=== PATIENT | female | born 1985 | race Caucasian/White ===

== ENCOUNTER 2016-12-24 21:46 | Emergency (ER) | payer OTHER ==
[~2016-12-24] VITALS: Ht 180.3 cm; Wt 88.5 kg
[~2016-12-24 21:46] MED LIST: BENADRYL25 MG PO; BRINTELLIX10 MG PO; CLEOCIN300 MG PO; GABAPENTIN100 MG PO; METHADONE 22 MG/1 ML PO; MOTRIN600 MG PO; OMEPRAZOLE20 MG PO; PERCOCET 5/31 TABLET PO; PREDNISONE50 MG PO; PROMETHAZINE HC25 M1 PO; TORADOL10 MG PO
[2016-12-24] MEDS ORDERED: MOTRIN600 MG PO (22:34)
[2016-12-24] MEDS ORDERED: ULTRACET1 TABLET PO (22:34)
[2016-12-24 22:47] VITALS: BP 147/94
== END 2016-12-24 22:48 | disposition home or self-care (01) ==
LOC: EME 21:46
PROC: 0HQ1XZZ Repair Face Skin, External Approach (ICD-10-PCS; principal; 2016-12-24)
DX: S01.81XA Laceration without foreign body of other part of head, initial encounter (principal); S40.012A Contusion of left shoulder, initial encounter; W01.198A Fall on same level from slipping, tripping and stumbling with subsequent striking against other object, initial encounter
CPT/HCPCS: 99281; 99284

== ENCOUNTER 2017-02-25 03:46 | Emergency (ER) | payer OTHER ==
[~2017-02-25] VITALS: Ht 177.8 cm; Wt 91.4 kg
[~2017-02-25 03:46] MED LIST changes: +ULTRACET1 TABLET PO
[2017-02-25 04:25] LABS: HEMATOCRIT 32.3 % (36.0-46.0); MCH 24.7 PG (29.0-34.0); MCHC 30.3 G/DL (30.0-36.0); MCV 81.6 FL (83-99); MEAN PLAT.VOLUME 11.6 uM^3 (9.5-12.4); PLATELET COUNT 310 K/uL (156-360); RBC DIS.WIDTH-CV 16.1 % (11.8-14.6); RBC DIS.WIDTH-SD 48.4 % (39-53); RED BLOOD COUNT 3.96 M/uL (3.80-5.20); WHITE BLOOD COUNT 6.4 K/uL (4.1-10.2)
[2017-02-25 04:42] LABS: CHLORIDE 109 mEq/L (99-109); POTASSIUM 3.6 mEq/L (3.7-5.4); SODIUM 143 mEq/L (136-147)
[2017-02-25 04:44] LABS: GLUCOSE 91 mg/dL (70-99)
[2017-02-25 04:45] LABS: ANION GAP 10 MEQ/L (2-14)
[2017-02-25 04:46] LABS: TOTAL BILIRUBIN 0.2 mg/dL (0.0-1.0)
[2017-02-25 04:47] LABS: ALKALINE PHOSPHATASE 172 IU/L (3-129); SERUM ETHYL ALCOHOL 304 mg/dL
[2017-02-25 04:48] LABS: GFR ESTIMATE (CALCULATED) > 59 mL/min/
[2017-02-25 04:49] LABS: UREA NITROGEN (BUN) 8 mg/dL (9-23)
[2017-02-25 04:51] LABS: LIPASE 164 U/L (1.0-51.0)
[2017-02-25 04:57] LABS: QUANTITATIVE HCG < 4.0 MIU/ML
[2017-02-25 06:25] LABS: ADD MIUA? YES; BILIRUBIN NEGATIVE; BLOOD SMALL; COLOR YELLOW ((YELLOW)); GLUCOSE (STRIP) NEGATIVE; KETONES NEGATIVE; LEUKOCYTES NEGATIVE; NITRITE NEGATIVE; PROTEIN (STRIP) NEGATIVE; SPECIFIC GRAVITY 1.026 (1.000-1.030)
[2017-02-25 06:28] LABS: BACTERIA NONE SEEN /HPF; EPITHELIAL CELLS RARE /HPF; MUCUS TRACE /LPF; RED BLOOD CELLS 0-5 /HPF (0-5); UCUL ADDED? NO; WHITE BLOOD CELLS 0-5 /HPF (0-5)
[2017-02-25 06:34] LABS: AMPHETAMINE NEGATIVE (500 ng/mL); BENZODIAZEPINES NEGATIVE (150 ng/mL); COCAINE NEGATIVE (150 ng/mL); METHAMPHETAMINE NEGATIVE (500 ng/mL); OPIATES (MORPHINE) NEGATIVE (100 ng/mL); PHENCYCLIDINE NEGATIVE (25 ng/mL); THC CANNABINOIDS PRESUMPTIVE POSITIVE (50 ng/mL)
[2017-02-25 06:35] LABS: ADD MEDTOX COMMENT Y; BARBITURATES NEGATIVE (200 ng/mL); INTERNAL CONTROLS VALID? YES; METHADONE PRESUMPTIVE POSITIVE (200 ng/mL); OXYCODONE NEGATIVE (100 ng/mL); PROPOXYPHENE NEGATIVE (300 ng/mL); TRICYCLIC ANTIDEPRESSANTS NEGATIVE (300 ng/mL)
[2017-02-25] MEDS ORDERED: PEPCID40 MG PO (13:08)
[2017-02-25] MEDS ORDERED: ATIVAN1 MG PO (13:08)
[2017-02-25 13:21] VITALS: BP 129/82
== END 2017-02-25 13:21 | disposition home or self-care (01) ==
LOC: EME 03:46
PROVIDERS: Emergency Medicine
DX: F10.10 Alcohol abuse, uncomplicated (principal); R45.851 Suicidal ideations; D64.9 Anemia, unspecified; R74.8 Abnormal levels of other serum enzymes; F32.9 Major depressive disorder, single episode, unspecified; F11.20 Opioid dependence, uncomplicated; Z98.84 Bariatric surgery status; F17.200 Nicotine dependence, unspecified, uncomplicated
CPT/HCPCS: 74177; 80053; 81003; 83690; 84702; 84999; 85027; 90839; 99281; 99285; G0480; J2765; J7030; S0028

== ENCOUNTER 2017-08-03 10:41 | Inpatient (IN) | payer OTHER ==
[~2017-08-03] VITALS: Ht 180.3 cm; Wt 83.4 kg
[~2017-08-03 10:41] MED LIST changes: +ATIVAN1 MG PO; -GABAPENTIN100 MG PO; +GABAPENTIN300 MG PO; +LIBRIUM25 MG PO; -METHADONE 22 MG/1 ML PO; +METHADONE10 MG/1 M1 PO; +PEPCID40 MG PO; +ZOFRAN ODT4 MG PO
[2017-08-03 12:00] LABS: ADD MIUA? NO; BILIRUBIN NEGATIVE; BLOOD NEGATIVE; COLOR YELLOW ((YELLOW)); GLUCOSE (STRIP) NEGATIVE; KETONES NEGATIVE; LEUKOCYTES NEGATIVE; NITRITE NEGATIVE; PROTEIN (STRIP) NEGATIVE; SPECIFIC GRAVITY 1.004 (1.000-1.030); UCUL ADDED? NO; UROBILINOGEN 0.2 MG/DL (0.2-1.0)
[2017-08-03 12:09] LABS: ADD MEDTOX COMMENT Y; AMPHETAMINE NEGATIVE (500 ng/mL); BARBITURATES NEGATIVE (200 ng/mL); BENZODIAZEPINES PRESUMPTIVE POSITIVE (150 ng/mL); COCAINE NEGATIVE (150 ng/mL); INTERNAL CONTROLS VALID? YES; METHADONE PRESUMPTIVE POSITIVE (200 ng/mL); METHAMPHETAMINE NEGATIVE (500 ng/mL); OPIATES (MORPHINE) NEGATIVE (100 ng/mL); OXYCODONE NEGATIVE (100 ng/mL); PHENCYCLIDINE NEGATIVE (25 ng/mL); PROPOXYPHENE NEGATIVE (300 ng/mL); THC CANNABINOIDS NEGATIVE (50 ng/mL); TRICYCLIC ANTIDEPRESSANTS NEGATIVE (300 ng/mL)
[2017-08-03 12:46] LABS: EOSINOPHIL (%) 1.6 % (0-5); EOSINOPHIL COUNT 0.1 K/uL (0-0.3); HEMATOCRIT 28.2 % (36.0-46.0); IMMATURE GRANULOCYTE (%) 0.5 % (0.0-0.7); LYMPHOCYTE COUNT 1.3 K/uL (1.0-2.8); MCH 25.7 PG (29.0-34.0); MCHC 30.9 G/DL (30.0-36.0); MCV 83.4 FL (83-99); MEAN PLAT.VOLUME 9.5 uM^3 (9.5-12.4); MONOCYTE (%) 7.8 % (3-12); MONOCYTE COUNT 0.3 K/uL (0-0.8); NEUTROPHIL (%) 54.1 % (45-76); RBC DIS.WIDTH-CV 19.7 % (11.8-14.6); WHITE BLOOD COUNT 3.7 K/uL (4.1-10.2)
[2017-08-03 12:49] LABS: PLATELET COUNT 411 K/uL (156-360); RED BLOOD COUNT 3.38 M/uL (3.80-5.20)
[2017-08-03 12:55] LABS: BENZODIAZEPINES, URINE SCREEN POSITIVE (200 ng/mL)
[2017-08-03 12:57] LABS: CHLORIDE 109 mEq/L (99-109); POTASSIUM 3.4 mEq/L (3.7-5.4); SODIUM 146 mEq/L (136-147)
[2017-08-03 12:59] LABS: GLUCOSE 70 mg/dL (70-99)
[2017-08-03 13:00] LABS: ANION GAP 12 MEQ/L (2-14)
[2017-08-03 13:01] LABS: TOTAL BILIRUBIN 0.3 mg/dL (0.0-1.0)
[2017-08-03 13:02] LABS: ALKALINE PHOSPHATASE 766 IU/L (3-129); SERUM ETHYL ALCOHOL 361 mg/dL
[2017-08-03 13:03] LABS: GFR ESTIMATE (CALCULATED) > 59 mL/min/
[2017-08-03 13:04] LABS: UREA NITROGEN (BUN) 3 mg/dL (9-23)
[2017-08-03 13:06] LABS: LIPASE 241 U/L (1.0-51.0)
[2017-08-03 13:13] LABS: QUANTITATIVE HCG < 4.0 MIU/ML
[2017-08-03 14:53] LABS: MAGNESIUM 1.4 mg/dL (1.3-2.7)
[2017-08-03 17:50] VITALS: BP 118/71
[2017-08-03 23:42] VITALS: BP 118/66
[2017-08-04 06:44] LABS: HEMATOCRIT 27.7 % (36.0-46.0); MCH 25.5 PG (29.0-34.0); MCV 82.2 FL (83-99); MEAN PLAT.VOLUME 9.5 uM^3 (9.5-12.4); PLATELET COUNT 432 K/uL (156-360); RBC DIS.WIDTH-CV 19.1 % (11.8-14.6); RBC DIS.WIDTH-SD 56.5 % (39-53); RED BLOOD COUNT 3.37 M/uL (3.80-5.20)
[2017-08-04 07:05] LABS: ALKALINE PHOSPHATASE 649 IU/L (3-129); ANION GAP 13 MEQ/L (2-14); CHLORIDE 109 MEQ/L (99-109); GFR ESTIMATE (CALCULATED) > 59 mL/min/; GLUCOSE 74 mg/dL (70-99); LIPASE 199 U/L (1.0-51.0); MAGNESIUM 1.7 mg/dl (1.3-2.7); SAMPLE HEMOLYSIS CHECK 0; SAMPLE ICTERIC CHECK 0; SAMPLE LIPEMIA CHECK 0; SODIUM 145 MEQ/L (136-147); TOTAL BILIRUBIN 0.5 MG/DL (0.0-1.0); UREA NITROGEN (BUN) 4 mg/dL (9-23)
[2017-08-04 07:06] LABS: POTASSIUM 4.4 MEQ/L (3.7-5.4)
[2017-08-04 07:35] VITALS: BP 130/78
[2017-08-04 10:24] LABS: INTERNAL CONTROL VALID? YES
[2017-08-04 11:35] VITALS: BP 120/64
[2017-08-04 16:20] VITALS: BP 134/70
[2017-08-05 00:09] VITALS: BP 138/84
[2017-08-05 07:29] VITALS: BP 148/78
[2017-08-05] MEDS ORDERED: ATIVAN2 MG PO (11:22)
[2017-08-05 11:29] LABS: ALKALINE PHOSPHATASE 631 IU/L (3-129); ANION GAP 8 MEQ/L (2-14); CHLORIDE 105 MEQ/L (99-109); GFR ESTIMATE (CALCULATED) > 59 mL/min/; LIPASE 342 U/L (1.0-51.0); POTASSIUM 4.3 MEQ/L (3.7-5.4); SAMPLE HEMOLYSIS CHECK 0; SAMPLE ICTERIC CHECK 0; SAMPLE LIPEMIA CHECK 0; TOTAL BILIRUBIN 0.6 MG/DL (0.0-1.0); UREA NITROGEN (BUN) 5 mg/dL (9-23)
[2017-08-05 11:30] LABS: GLUCOSE 104 mg/dL (70-99); SODIUM 137 MEQ/L (136-147)
== END 2017-08-05 11:30 | disposition home or self-care (01) | DRG 439 ==
LOC: EME 10:41 → 5SOUTH 14:07 → EDOF 14:07 → ENRESERV 14:09 → 5SOUTH 17:30
PROVIDERS: Emergency Medicine; Physician Assistant
DX: K85.20 Alcohol induced acute pancreatitis without necrosis or infection (principal); F10.239 Alcohol dependence with withdrawal, unspecified; F11.20 Opioid dependence, uncomplicated; K70.10 Alcoholic hepatitis without ascites; K29.20 Alcoholic gastritis without bleeding; L29.9 Pruritus, unspecified; K80.20 Calculus of gallbladder without cholecystitis without obstruction; R74.0 Nonspecific elevation of levels of transaminase and lactic acid dehydrogenase [LDH]; R74.8 Abnormal levels of other serum enzymes; D64.9 Anemia, unspecified; R21 Rash and other nonspecific skin eruption; R53.1 Weakness; R60.0 Localized edema; R68.83 Chills (without fever); R29.6 Repeated falls; F17.200 Nicotine dependence, unspecified, uncomplicated; Z91.81 History of falling; Z98.84 Bariatric surgery status
CPT/HCPCS: 70450; 74183; 76705; 80053; 81003; 82272; 83690; 83735; 84702; 84999; 85025; 85027; 90686; 93970; 99281; 99285; C9113; G0480; J1650; J2060; J3411; J3475; J7030